=== PATIENT | male | born 1995 | race Caucasian/White ===

== ENCOUNTER 2021-09-26 19:19 | Emergency (ER) | payer SELFPAY ==
[2021-09-26] VITALS (16 sets, daily range): BP systolic 129–143; BP diastolic 79–83; PULSE 56–66; RESP 11–25; TEMP 36.2; O2SAT 95–100
--- NOTE | 2021-09-26 20:15 | DI.RAD_ITS ---
Exam(s) XR CHEST 2V PA LATERAL EXAM: XR CHEST 2V PA LATERAL CLINICAL HISTORY: Dyspnea, SOB R/O PNTHx TECHNIQUE: 2D digital imaging was performed. COMPARISON: No exams were available for comparison FINDINGS: MEDIASTINUM: Normal. HEART: Normal. PULMONARY VASCULATURE: Normal. LUNGS: Clear. PLEURAL SPACE: No pleural effusion or pneumothorax. BONE:Unremarkable for age. IMPRESSION: No acute abnormality. DATA REPOSITORY: RADIATION DOSE DELIVERED:
--- NOTE | 2021-09-26 20:15 | DI.RAD_ITS ---
Exam(s) XR SHOULDER RT COMPLETE 2+V EXAM: XR SHOULDER RT COMPLETE 2+V CLINICAL HISTORY: Shoulder pain. TECHNIQUE: 2D digital imaging was performed. Five views. COMPARISON: No exams were available for comparison FINDINGS: BONES: No acute fracture is present. No bony destructive lesion is seen. JOINTS: No dislocation present. SOFT TISSUE: Normal. IMPRESSION: Unremarkable radiographs of the right shoulder. DATA REPOSITORY: RADIATION DOSE DELIVERED:
--- NOTE | 2021-09-26 20:42 | W.ED.GENAD ---
Discharge Plan Disposition Patient Disposition: HOME Condition: Stable Discharge Details Clinical Impression: Strain of cervical portion of right trapezius muscle, Muscle spasm of back Primary Care Provider: None,None ED Provider: Mireya Weems Home Meds and New Rx's Prescriptions: New cyclobenzaprine 10 mg tablet 10 mg PO TID PRN (Reason: muscle spasm) Qty: 10 0RF No Action diphenhydramine-acetaminophen [Tylenol PM Extra Strength] 25-500 mg Tablet 1 tab PO Q4H PRN Rx Instructions: administer while awake Discharge Instructions Instructions: Muscle Spasm (ED) Additional Instructions: At this time there is no evidence for any acute bony abnormality. No abnormality in your lung no collapsed lung. I do suspect that you have a muscle spasm. You may alternate ice and heat try massage. Take the muscle relaxers as directed. Please take Tylenol or Ibuprofen with food every 4-6 hours as needed for pain and swelling. Follow up with primary care provider in 3-5 days. Return to ED sooner if any worsening or concerns. Increase oral fluids. Stand Alone Forms: Work Release Discharge Data Discharge Date/Time-TO BE ENTERED AT DEPARTURE: 09/26/21 21:47 Medical Decision Making 26-year-old male presents to the ER with chief complaint of right shoulder pain, right back pain and pain with deep inspiration which started around 2 PM today. He denies any known injury he does smoke marijuana. He has not taken anything prior to arrival. Vital signs are stable upon arrival. Diminished lung sounds bilaterally. No crepitus no contusions no deformity. She does have some paraspinous right lateral neck pain, and rhomboid spasm palpated. No obvious deformity no swelling. Distal CMS is intact radial pulse intact. I do suspect musculoskeletal spasm, will get chest x-ray to rule out pneumothorax. Chest x-ray is within normal limits. Upon patient reevaluation he is moving his right upper extremity without any difficulty. Discussed home care given Flexeril. This text was generated using [employer] system, please disregard any oddities of phrase or misspellings. Imaging Data Radiologic Study: Imaging: X-Ray Radiologist's impression: TECHNIQUE: Imaging protocol: Radiologic exam of the Right shoulder. Views: 2 or more views. COMPARISON: CR XR CHEST 2V PA LATERAL 09/26/2021 8:39 PM FINDINGS: Bones/joints: Normal. Soft tissues: Normal. IMPRESSION: No acute findings. HPI General Mode of arrival: ambulatory. Date/Time Provider Initiated Documentation: 09/26/21 19:55. Limitations to Documentation: no limitations. Information obtained by: patient, RN notes reviewed and old records reviewed. HPI Narrative: 26-year-old male presents to the ER with chief complaint of right shoulder pain which began last night radiated to his neck and arm. He reports some numbness and tingling. He reports that he is having increased pain to breathe and move. He denies any known injury denies any heavy lifting initially. Vital signs are stable. Related Data Home Medications Medication Instructions Recorded Confirmed cyclobenzaprine 10 mg tablet 10 mg PO TID PRN muscle spasm #10 09/26/21 tabs diphenhydramine 25 1 tab PO Q4H PRN 09/26/21 09/26/21 mg-acetaminophen 500 mg tablet (Tylenol PM Extra Strength) Previous Rx's Medication Instructions Recorded cyclobenzaprine 10 mg tablet 10 mg PO TID PRN muscle spasm #10 09/26/21 tabs Allergies Allergy/AdvReac Type Severity Reaction Status Date / Time acetaminophen Allergy Mild Hives Unverified 09/26/21 19:48 [From Tylenol PM] diphenhydramine Allergy Mild Hives Unverified 09/26/21 19:48 [From Tylenol PM] General Stated Complaint: Nk/Back Pain MATTHIAS: 3 Review of Systems All systems reviewed & are unremarkable except as noted in HPI and below ENT Ears, Nose, Mouth, and Throat: Reports neck pain Respiratory Respiratory: Denies cough, Denies hemoptysis, Reports pain on inspiration and Denies wheezing Musculoskeletal Musculoskeletal: Reports as per HPI, Reports arthralgias, Reports neck pain, Reports radiating pain into limb, Reports stiffness and Reports tingling Neurologic Neurologic: Reports tingling Allergic/Immunologic Allergic/Immunologic: Denies wheezing PFSH All Active Problems (Updated 09/26/21 @ 21:32 by Mireya Weems NP) Strain of cervical portion of right trapezius muscle (Acute) Muscle spasm of back (Acute) Social History Smoking/Tobacco Use Status: Current every day Tobacco Type: smokeless tobacco Smoking risk assessment performed?: Yes Alcohol Intake: current Alcohol Intake frequency: a few times a month Alcohol type: beer Drug use: Daily Substance use type: marijuana Details: Chewing tobacco. Marijuana to go to sleep. Do you feel safe at home: Yes Do you feel safe in your relationship?: Yes Exam Narrative Exam Narrative: Constitutional: Alert and oriented x3. Appears stated age. Normal body habitus. Head: Normocephalic, no trauma. Eyes: Pupils PERRL, Red reflex noted, EOM's intact. Eyelids symmetrical without lesions, discharge, or swelling. ENT: Bilateral TM's WNL, External ear normal to inspection, no mastoid TTP, swelling, or erythema, Nasal turbinates WNL, no nasal discharge. Normal dentition, Posterior pharynx WNL, no exudate. Chest: RRR, Normal S1, S2, distal pulses intact. Resp: Lungs diminished to auscultation bilaterally, however no wheezes, rales, or rhonchi. Abdomen: Soft, non-distended, Normoactive bowel sounds all 4 quads. Musculoskeletal: Normal gait, 5/5 strength to all four extremities. Trigger point palpated to right rhomboid and right lateral paraspinous neck. Skin: No suspicious rashes or lesions. Capillary refill less than 2 sec. Neurologic: Cranial nerves II-XII intact. Alert and oriented x 3. Motor: No deficits noted. Sensory: Intact bilaterally all 4 extremities. Reflexes: DTR's intact bilaterally.. Hematologic/Lymphatic: No ecchymosis, no lymphadenopathy. Course Vital Signs Vital signs: Vital Signs Temperature 36.2 C L 09/26/21 19:43 Pulse 60 09/26/21 19:43 Respiratory Rate 14 09/26/21 19:43 Blood Pressure 129/81 09/26/21 19:43 Pulse Oximetry 100 09/26/21 19:43 Temperature 36.2 C L 09/26/21 19:43 Temperature Source Skin 09/26/21 19:43 Pulse 60 09/26/21 19:43 Respiratory Rate 14 09/26/21 19:43 Respiratory Effort Non-Labored 09/26/21 19:50 Blood Pressure 129/81 09/26/21 19:43 Blood Pressure Position Sitting 09/26/21 19:43 Pulse Oximetry 100 09/26/21 19:43 Oxygen Delivery Method Room Air 09/26/21 19:43 Oxygen Flow Rate 0 09/26/21 19:43 Pain Level 6 09/26/21 19:50 PAWSS Have you Been Recently Intoxicated or Drunk Within the Last 30 days?: No Have you Ever Experienced Previous Episodes of Alcohol Withdrawal?: No Have you ever Experienced Withdrawal Seizures?: No Have you ever Experienced Delirium Tremens(DT)s?: No Have you ever undergone Alcohol Rehabilitation Treatment (i.e, inpt ot outpatient treatment programs)?: No Have you ever Experienced Blackouts?: No Have you ever Combined Alcohol with other Downers within the last 90 days?: No Have you ever Combined Alcohol with any other Substance of Abuse during the last 90 days?: No Positive Blood Alcohol level on Presentation? [PCS.BAL]: No Evidence of Increased Autonomic Activity (i.e. HR>120, tremor, sweating, agitation, nausea)?: No Result: 0
[2021-09-26] MEDS: Ibuprofen 600 MG TAB PO (20:58)
[2021-09-26] MEDS: Cyclobenzaprine 10 MG TAB PO (20:58)
--- NOTE | 2021-09-26 21:04 | DI.VRAD_ITS ---
PROCEDURE INFORMATION: Exam: XR Chest Exam date and time: 09/26/2021 8:39 PM Age: 26 years old Clinical indication: Patient HX: Dyspnea, SOB R/O pnthx TECHNIQUE: Imaging protocol: Radiologic exam of the chest. Views: 2 views. COMPARISON: No relevant prior studies available. FINDINGS: Lungs: Clear lungs. Pleural spaces: No pneumothorax. No sizable pleural effusion. Heart/Mediastinum: No cardiomegaly. Bones/joints: Unremarkable. IMPRESSION: Clear lungs. Dictated and Authenticated by: Luis Alfredo Milian MD. Ordering:MADAI Gomes MD
--- NOTE | 2021-09-26 21:05 | DI.VRAD_ITS ---
PROCEDURE INFORMATION: Exam: XR Right Shoulder Exam date and time: 09/26/2021 8:45 PM Age: 26 years old Clinical indication: Right; Patient HX: Shoulder pain TECHNIQUE: Imaging protocol: Radiologic exam of the Right shoulder. Views: 2 or more views. COMPARISON: CR XR CHEST 2V PA LATERAL 09/26/2021 8:39 PM FINDINGS: Bones/joints: Normal. Soft tissues: Normal. IMPRESSION: No acute findings. Dictated and Authenticated by: Luis Alfredo Milian MD. Ordering:MADAI Gomes MD
[2021-09-26] MEDS: Cyclobenzaprine 10 MG TAB, 3 TABS/BTL PO (21:42)
== END 2021-09-26 21:47 | disposition home or self-care (01) ==
PROVIDERS: Emergency Provider Registered Nurse Emergency
DX: S16.1XXA Strain of muscle, fascia and tendon at neck level, initial encounter (principal); M62.830 Muscle spasm of back; F17.220 Nicotine dependence, chewing tobacco, uncomplicated; X58.XXXA Exposure to other specified factors, initial encounter; M25.511 Pain in right shoulder; R07.1 Chest pain on breathing
CPT/HCPCS: 99284; 71046; 73030